=== PATIENT | male | born 1935 | race Caucasian/White ===

== ENCOUNTER 2020-07-07 18:21 | Inpatient (IN) | payer OTHER ==
[~2020-07-07] VITALS: Ht 177.8 cm; Wt 74.8 kg
[2020-07-07 18:29] VITALS: BP 114/78
[2020-07-07] MEDS ORDERED: DOXYCYCLINE 10100 M2 PO (18:39)
[2020-07-07] MEDS ORDERED: ONDANSETRON HCL4 M2 PO (18:39)
[2020-07-07] MEDS ORDERED: HYDROCORTISONE120 M4 TOP (18:40)
[2020-07-07] MEDS ORDERED: METHYLPREDNISOLO4 M1 PO (18:42)
[2020-07-07] MEDS ORDERED: MELOXICAM15 MG PO (18:43)
[2020-07-07] MEDS ORDERED: NORVASC5 MG PO (18:43)
[2020-07-07] MEDS ORDERED: LOSARTAN POTASS50 MG PO (18:44)
[2020-07-07] MEDS ORDERED: SOTALOL AF120 MG PO (18:45)
[2020-07-07 19:39] LABS: ABSOLUTE NEUTROPHILS 4.2 thou/uL (1.4-8.2); BASOPHILS 0.2 % (0.0-2.0); EOSINOPHILS 0.1 % (0.0-3.0); HEMATOCRIT 41.2 % (42.0-52.0); HEMOGLOBIN 13.9 gm/dL (14.0-18.0); LYMPHOCYTES 37.2 % (24.0-44.0); MCH 30.6 pg (26.0-34.0); MCHC 33.8 g/dL (28.0-37.0); MCV 90.4 fL (80.0-100.0); MONOCYTES 6.8 % (1.0-8.0); PLATELET COUNT 210 thou/uL (150-400); POLYS 55.7 % (36.0-66.0); RBC 4.56 mil/uL (4.50-6.00); RDW 14.7 % (10.5-14.5); WBC 7.5 thou/uL (4.0-11.0)
[2020-07-07 19:44] LABS: BE(vivo) -2.3 mmol/L (-2 to +3); HCO3 20.5 mmol/L (22.0-26.0); PCO2 30.3 mmHg (35.0-45.0); PO2 80.8 mmHg (80.0-100.0); pH 7.449 (7.360-7.450); sO2 96.5 % (92.0-98.0)
[2020-07-07 19:47] LABS: ANION GAP 10 mmol/L (7-16); BUN 18 mg/dL (7-18); CALCIUM 8.4 mg/dL (8.5-10.1); CHLORIDE 98 mmol/L (98-107); CO2 24 mmol/L (21-32); GLUCOSE 107 mg/dL (74-106); POTASSIUM 4.1 mmol/L (3.5-5.1); SODIUM 132 mmol/L (136-145)
[2020-07-07 19:58] LABS: ALBUMIN 2.8 g/dL (3.4-5.0); SGOT 33 U/L (15-37); SGPT 17 U/L (30-65); TOTAL BILIRUBIN 0.6 mg/dL (0.2-1.0); TOTAL PROTEIN 6.7 g/dL (6.4-8.2); TROPONIN-I <0.06 ng/mL (<0.06)
[2020-07-07 22:26] LABS: URINE BILIRUBIN NEGATIVE (Negative); URINE BLOOD NEGATIVE (Negative); URINE CLARITY CLEAR; URINE COLOR YELLOW; URINE GLUCOSE-RANDOM* NEGATIVE (Negative); URINE KETONES NEGATIVE (Negative); URINE LEUKOCYTES-REFLEX NEGATIVE (Negative); URINE NITRITE-REFLEX NEGATIVE (Negative); URINE PROTEIN (DIPSTICK) NEGATIVE (Negative); URINE SPECIFIC GRAVITY <= 1.005 (1.005-1.035); URINE UROBILINOGEN 0.2 E.U./dl (0.2-1.0)
[2020-07-07 23:05] VITALS: BP 103/53
--- NOTE | 2020-07-07 23:07 | NUR ---
Attempted to call report to medical nurse. Nurse unable to take report. Reports will call back.
[2020-07-08] VITALS: BP 103/56
--- NOTE | 2020-07-08 01:39 | NUR ---
PT ADMITTED FROM ER. VSS AFEBRILE SAT 88 % ON RA. PLACED ON O2 2 LNC SAT INCREASED TO 97%. LUNGS DIMINISHED COARSE LLLOBE. ABX INFUSING R WRIST. INSTRUCTED ON FALL PRECAUTIONS. ORIENTED PT TO ROOM, URINAL AT BS. CALL LIGHT IN REACH . BED DOWN LOW LOCKED POSITION. BED ALARM ON. PICTURES OF LEFT BUTTOCK WOUND TAKEN. SB-SR ON MONITOR. NO C/O PAIN PRESENTLY. NO S/S DISTRESS PRESENTLY ON 2L. WILL CONTINUE TO MONITOR PT FOR CHANGES.
--- NOTE | 2020-07-08 04:00 | NUR ---
PT RESTING QUIETLY . NO S/S DISTRESS.
[2020-07-08 04:43] VITALS: BP 137/85
[2020-07-08 08:00] VITALS: BP 153/83
[2020-07-08 08:33] LABS: HEMATOCRIT 39.5 % (42.0-52.0); HEMOGLOBIN 13.3 gm/dL (14.0-18.0); MCH 30.3 pg (26.0-34.0); MCHC 33.7 g/dL (28.0-37.0); MCV 89.9 fL (80.0-100.0); RBC 4.39 mil/uL (4.50-6.00); RDW 14.5 % (10.5-14.5); WBC 4.4 thou/uL (4.0-11.0)
[2020-07-08 08:44] LABS: CALCIUM 7.8 mg/dL (8.5-10.1); MAGNESIUM 1.9 mg/dL (1.8-2.4); POTASSIUM 4.1 mmol/L (3.5-5.1)
[2020-07-08 11:32] VITALS: BP 141/88
[2020-07-08 16:00] VITALS: BP 128/81
--- NOTE | 2020-07-08 19:47 | NUR ---
ASSUMED CARE OF PT AT 0700. PT IS A&OX4 AND VITAL SIGNS ARE STABLE. PT COVID TEST POSITIVE AND DR. BRASWELL NOTIFIED. PT USING URINAL AT BEDSIDE, CALLS FOR STAFF TO AMBULATE. PT ON 2L OF O2 AND SATS >93%. FALL PRECAUTIONS IN PLACE AND NURSING WILL CONTINUE TO MONITOR.
[2020-07-08 20:00] VITALS: BP 140/80
[2020-07-09] VITALS (7 sets, daily range): BP systolic 120–154; BP diastolic 72–87
--- NOTE | 2020-07-09 03:38 | NUR ---
PT ALERT AND ORIENTED X4. BP MOD HIGH, PULSE 40S TO 60S. AFEBRILE. SATS 91-92% ON 2LNC. GRADUALLY INCREASED TO 4LNC . RT NOTIFIED. CONTINUOUS PULSE OX ON. SATS INCREASED TO 95-96% ON 4LNC. RT WILL BRING NEBULIZED TX AROUND 0500 WHEN PT AGREED TO BE AWAKENED. HRR SR WITH 1ST DEGREE AV BLOCK ON THE MONITOR. WILL CONTINUE TO MONITOR PT FOR CHANGES.
[2020-07-09 05:38] LABS: BASOPHILS 0.1 % (0.0-2.0); HEMATOCRIT 39.5 % (42.0-52.0); HEMOGLOBIN 13.4 gm/dL (14.0-18.0); LYMPHOCYTES 24.9 % (24.0-44.0); MCH 30.2 pg (26.0-34.0); MCHC 33.8 g/dL (28.0-37.0); MCV 89.4 fL (80.0-100.0); MONOCYTES 5.4 % (1.0-8.0); PLATELET COUNT 235 thou/uL (150-400); POLYS 69.6 % (36.0-66.0); RBC 4.42 mil/uL (4.50-6.00); RDW 14.7 % (10.5-14.5); WBC 11.5 thou/uL (4.0-11.0)
[2020-07-09 05:50] LABS: FIBRINOGEN 380.4 mg/dL (210-360); PROTIME 10.4 Seconds (9.3-11.4)
[2020-07-09 06:18] LABS: ALBUMIN 2.5 g/dL (3.4-5.0); CALCIUM 8.1 mg/dL (8.5-10.1); CREATININE 0.9 mg/dL (0.7-1.3); POTASSIUM 3.9 mmol/L (3.5-5.1); TOTAL BILIRUBIN 0.4 mg/dL (0.2-1.0); TOTAL PROTEIN 6.2 g/dL (6.4-8.2)
--- NOTE | 2020-07-09 07:41 | NUR ---
PT STATED HAD TROUBLE SLEEPING. WILL ASK DR FOR SLEEPING PILL TONIGHT. SAT 99% ON 4LNC.O2 DECREASED TO 3LNC. PCXRAY PENDING. NOTIFIED DAY SHIFT NS TO F/U WITH MEDICAL RECORDS TO OBTAIN CONSENT FOR RELEASE OF INFO. AND GET COPIES OF LABS AND XRAYS TO PT.
--- NOTE | 2020-07-09 08:31 | EKG ---
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 : 1935 Requested By: Carolyn Gong Order Number: [id number] MD: Anand Hutchinson Measurements Intervals [place] Rate: 72 P: 51 VA: 219 QRS: 14 QRSD: 110 T: 47 QT: 421 QTc: 461 Interpretive Statements Sinus rhythm Multiple ventricular premature complexes Borderline prolonged VA interval No previous ECG available for comparison Electronically Signed On 07-09-2020 8:31:11 CDT by Anand Hutchinson [email or web address] <ELECTRONICALLY SIGNED> By: Anand Hutchinson MD, FAC [id number] Anand Hutchinson MD, [facility] /EPI
--- NOTE | 2020-07-09 09:37 | NUR ---
RD consult received for poor intake. Admit with COVID + pneumonia, acute hypoxic respiratory failure. Hx cardiac and htn. Has had loss smell ~5 days. Pt had reported a wt of 172 lb at admit and current wts 181-182 lb. Ate 50-100% yesterday. Will add oral supplement Ensure Enlive 1x daily and follow trends. Low nutrition risk at this time.
--- NOTE | 2020-07-09 10:09 | NUR ---
WOUND CONSULT; THERE IS A WOUND TO THE LEFT BUTTOCK. THE WOUND IS 0.5 X 0.5 X 0.1 THERE IS NO S/S OF INFECTIONS. RECOMMENDATIONS; RENETTA BID LOW AIR LOSS BED PUMP DISCUSSED WITH CLARENCE
--- NOTE | 2020-07-09 16:22 | NUR ---
INITIAL ASSESSMENT: Received consult. URIAH reviewed chart and spoke with nursing and attending physician. Pt was admitted from home due to pneumonia/acute respiratory failure. Pt is in Enhanced Isolation due to COVID-19. Pt is afebrile and on 4L of O2. Pt is on IV abx/IV steroids and completing course of Remdesivir. URIAH placed call to pt's room. No answer. SW left voice message for pt's , Raeann ([phone]). Per chart, pt lives at home with his . Awaiting call back from pt's to discuss pt's prior level of functioning and discharge plans. Pt will need therapy evals when able to participate. SW is following to assist as needed with discharge planning.
--- NOTE | 2020-07-09 19:33 | NUR ---
ASSUMED CARE APPROX 0700. PT ALERT AND ORIENTED X4. ASSESSMENTS CHARTED AND VSS. PT AFEBRILE THIS SHIFT. SB ON TELE MONITOR. DENIES ACUTE PAIN. PT DESATS WITH AMBULATION. ON 3LNC W/ NO SIGNS OF DISTRESS NOTED. PT AMBULATED THIS SHIFT. GAIT STEADY W/ WALKER. PT'S DTR, LAI, UPDATED ON STATUS. MEDICAL RECORDS REQUEST SIGNED AND FAXED. WILL CONTINUE TO MONITOR.
[2020-07-10 04:45] VITALS: BP 137/82
--- NOTE | 2020-07-10 07:30 | NUR ---
PT IS ALERT AND ORIENTED X4, PLEASANT AND COOPERATIVE. ENC TO TC AND DB W/A. SATS DECREASED TO 88 BREIFLY LAST NIGHT ON 3LNC. INCREASED TO 4LNC. RT NOTIFIED AND GAVE TX. Z RANDA APPLIED TO LEFT BUTTOCK. ENC PT TO LIE ON SIDES AND ALTERNATE. MELATONIN GIVEN FOR SLEEP. PT STATED IT HELPED HIM GET TO SLEEP. AFEBRILE LAST NIGHT. BED DOWN CALL LIGHT IN REACH BED ALARM ON.
[2020-07-10 08:40] VITALS: BP 142/89
--- NOTE | 2020-07-10 11:19 | NUR ---
ASSUMED CARE APPROX 0700. PT ALERT AND ORIENTED X4. ASSESSMENTS CHARTED AND VSS. PT WAS ON 3LNC AND HAD DYSPNEIC EPISODE THIS AM. SATS WERE IN THE 80S. O2 INCREASED TO 7LNC. PT GIVEN BREATHING TX. PT NOW ON 6L AND 02 SAT BTWN 93-95%. PT REPORTS THAT HE IS BREATHING BETTER AFTER TX. PT'S DTR, LAI, GIVEN UPDATE ON STATUS. WILL CONTINUE TO MONITOR.
[2020-07-10 11:30] VITALS: BP 143/84
--- NOTE | 2020-07-10 15:00 | NUR ---
URIAH reviewed chart and spoke with nursing and attending physician. Pt is in Enhanced Isolation due to COVID-19. Pt is afebrile and on 3L of O2. Pt is on IV abx/IV steroids. Completing course of Remdesivir (last dose 07/12). Therapy to be ordered when pt is able to participate. URIAH placed call into pt's room. No answer. URIAH spoke with pt's dtr, Ksenia, via phone. Introduced role of URIAH. Pt's dtr is an ICU nurse at [employer]. Per Ksenia, pt lives at home with his . Prior to admission, pt was not using any DME. Pt has had back surgeries in the past and has used HH following surgery. Unsure name of HH agency. Pt's PCP is Dr. James Castro in [place]. Pt's dtr states that their goal is for pt to return home with HH/Home O2 if needed. URIAH is following to assist as needed with discharge planning.
[2020-07-10 16:12] VITALS: BP 122/75
[2020-07-10 19:59] VITALS: BP 137/79
[2020-07-11 05:28] VITALS: BP 150/84
--- NOTE | 2020-07-11 05:41 | NUR ---
ASSUMED CARE AT 1900. PT DENIES PAIN OR NAUSEA. REPORTS FEELING SLIGHTLY SOB, WORSE WITH ACTIVITY; SATS AROUND 92-95% ON 4L. HR 60'S, THEN DROPPED TO 40-50'S ONCE ASLEEP. MOVED WELL FROM CHAIR TO BED WITHOUT ASSISTANCE. SPOKE WITH PT'S DAUGHTER, INFORMED THAT DR. BRASWELL HAS ORDERED TYPE/SCREEN AND CONSENT FORM FOR CONVALESCENT PLASMA; DTR REPORTED SHE WANTED TO TALK WITH DR. BRASWELL BEFORE PLASMA WAS GIVEN. SPOKE WITH PT ABOUT THIS AND HE AGREED THAT SHE SHOULD TALK TO THE DOCTOR FIRST. NO OTHER CONCERNS, WILL CONTINUE TO MONITOR.
[2020-07-11 06:32] LABS: INR 1.1; PROTIME 11.1 Seconds (9.3-11.4)
[2020-07-11 06:49] LABS: ABSOLUTE NEUTROPHILS 7.4 thou/uL (1.4-8.2); BASOPHILS 0.1 % (0.0-2.0); HEMATOCRIT 40.2 % (42.0-52.0); HEMOGLOBIN 13.4 gm/dL (14.0-18.0); LYMPHOCYTES 24.3 % (24.0-44.0); MCH 30.2 pg (26.0-34.0); MCHC 33.4 g/dL (28.0-37.0); MCV 90.2 fL (80.0-100.0); MONOCYTES 4.5 % (1.0-8.0); PLATELET COUNT 268 thou/uL (150-400); POLYS 71.1 % (36.0-66.0); RBC 4.46 mil/uL (4.50-6.00); RDW 14.5 % (10.5-14.5); WBC 10.5 thou/uL (4.0-11.0)
[2020-07-11 07:06] LABS: ALBUMIN 2.4 g/dL (3.4-5.0); CREATININE 0.8 mg/dL (0.7-1.3); POTASSIUM 3.6 mmol/L (3.5-5.1); TOTAL BILIRUBIN 0.6 mg/dL (0.2-1.0); TOTAL PROTEIN 5.9 g/dL (6.4-8.2)
[2020-07-11 09:12] VITALS: BP 118/63
--- NOTE | 2020-07-11 10:30 | NUR ---
WOUND CARE F/U; I DISCUSSED THE PATIENT WOUND WITH THE RN TODAY. COVID RESTRICTIONS TO LIMIT EXPOSURE. THE WOUND CONDITION IS STABLE AT THIS TIME. CONTINUE CURRENT TX DISCUSSED WITH RN
--- NOTE | 2020-07-11 12:01 | NUR ---
SW received call from pt's dtr, Ksenia, requesting a family meeting with physician to discuss pt's current condition and plan of care. Pt's dtr states she has left messages for the hospitalist and ID physician and have not heard back. Pt's son, who is a physician, would like to discuss treatment plan. SW discussed that family meetings cannot be held in person at this time, but a conference call could be arranged. Pt's dtr is agreeable. Pt has seven children and they would like to all hear the information. URIAH discussed with current attending physician. URIAH contacted the Director of Case Mgmt to assist with scheduling a conference call. SW to provide call in # and conference ID # to Ksenia when available. She can pass on the info to her family members. Pt remains in Enhanced Isolation due to COVID-19. Pt is afebrile and on 4L of O2. Pt is on IV abx and completing course of Remdesivir (last dose 07/12). URIAH is following to assist as needed with discharge planning.
[2020-07-11 16:00] VITALS: BP 129/71
--- NOTE | 2020-07-11 19:24 | NUR ---
TODAY PT'S MEDICAL RELEASE FORM WAS COMPLETED PER REQUEST, SIGNED, AND FAXED TO MEDICAL RECORDS. WILL HAVE TO FOLLOW UP WITH IT LATER. ALSO CONVALESCENT PLASMA WAS ATTEMPTED TO BE ADMINISTERED BUT DUE TO SPECIAL IDENTIFICATION CODE NOT BEING PROVIDED AT THIS TIME, RN COULD NOT START THE PROCESS TODAY. WAS REACHED OUT TO AND AWAITING RESPONSE AT THIS TIME. WILL HAVE TO FOLLOW UP. RT INCREASED THE PT'S OXYGEN TO 5L FROM 4L TODAY FOR COMFORT, PT WAS SENT TO CT OF THE CHEST TO RULE OUT PE AT 1845. RESULT TO BE POSTED. NO OTHER CHANGES AT THIS TIME, PT STATES BEING COMFORTABLE AND FEELING BETTER THAN YESTERDAY
[2020-07-11 20:02] VITALS: BP 120/63
[2020-07-12 04:52] VITALS: BP 116/74
[2020-07-12 06:15] LABS: HEMATOCRIT 38.9 % (42.0-52.0); HEMOGLOBIN 13.3 gm/dL (14.0-18.0); MCH 30.9 pg (26.0-34.0); MCHC 34.1 g/dL (28.0-37.0); MCV 90.7 fL (80.0-100.0); RBC 4.29 mil/uL (4.50-6.00); RDW 14.6 % (10.5-14.5); WBC 10.6 thou/uL (4.0-11.0)
[2020-07-12 06:25] LABS: CREATININE 0.8 mg/dL (0.7-1.3); POTASSIUM 3.7 mmol/L (3.5-5.1)
--- NOTE | 2020-07-12 07:48 | NUR ---
ASSUMED CARE AT 1900, ASSESSMENT COMPLETED. PT DENIES PAIN OR NAUSEA. REPORTS STILL FEELING SLIGHTLY SOB, O2 SATS 90-92% ON 5L. ZGUARD APPLIED TO BUTTOCK WOUND. NO FURTHER CONCERNS, SHIFT REPORT GIVEN AT 0700.
[2020-07-12 08:21] VITALS: BP 145/68
[2020-07-12 10:31] VITALS: BP 129/73
[2020-07-12 10:56] VITALS: BP 123/70; BP 137/72
[2020-07-12 12:19] LABS: BE(vivo) 0.7 mmol/L (-2 to +3); HCO3 23.3 mmol/L (22.0-26.0); PCO2 31.5 mmHg (35.0-45.0); PO2 60.3 mmHg (80.0-100.0); pH 7.486 (7.360-7.450); sO2 93.1 % (92.0-98.0)
--- NOTE | 2020-07-12 13:11 | NUR ---
URIAH reviewed chart and spoke with nursing and attending physician. Pt is in Enhanced Isolation due to COVID-19. Pt is afebrile and on 10L of O2. O2 need increased this morning. Pt is on IV abx/IV steroids. Pt is completing course of Remdesivir. Pt to have plasma today. URIAH spoke with pt's dtrKsenia, this morning to follow up on family conference call last evening with attending physician. All questions answered and family are all up to date on the plan of care. Goal is for pt to discharge home with HH and Home O2 if needed. Pt agreeable with plan. Pt will need therapy evals when able to participate. URIAH is following to assist as needed with discharge planning
[2020-07-12 15:54] VITALS: BP 138/78
--- NOTE | 2020-07-12 19:00 | NUR ---
PT BEGAN SHIFT ON 5L AND WAS INCREASED TO 10l @ 0945 WITH SATS OF 92% ON 10L. WILL NOTIFY DR SAMUEL OF O2 NEEDS AND PLACE PULM CONSULT...
[2020-07-12 19:51] VITALS: BP 124/74
[2020-07-13] VITALS (7 sets, daily range): BP systolic 125–148; BP diastolic 67–80
--- NOTE | 2020-07-13 03:39 | NUR ---
PT IS KEEPING HIS O2 SATS IN THE LOWER 90'S ON 14 LITERS N/C. HE IS COMFORTABLE WITH HIS BREATHING AND IS MOVING SECRETIONS. DENIES PAIN. HE IS THANKFUL OF THE CARE AND HAS BEEN ABLE TO RELAX AND REST TONIGHT. ALL QUESTIONS ANSWERED PRESENTED BY HIS DTR AND PATIENT. ENCOURAGED HIM TO CALL FOR ASSIST OUT OF BED.
[2020-07-13 06:06] LABS: HEMATOCRIT 38.4 % (42.0-52.0); HEMOGLOBIN 13.1 gm/dL (14.0-18.0); MCH 30.5 pg (26.0-34.0); MCV 89.6 fL (80.0-100.0); RBC 4.29 mil/uL (4.50-6.00); RDW 14.3 % (10.5-14.5); WBC 10.8 thou/uL (4.0-11.0)
[2020-07-13 06:28] LABS: CALCIUM 8.2 mg/dL (8.5-10.1); POTASSIUM 4.1 mmol/L (3.5-5.1)
[2020-07-13] MEDS ORDERED: HYDROCHLOROTHIA25 M2 PO (09:18)
--- NOTE | 2020-07-13 11:04 | NUR ---
Daughter of Dolores Mccormack requested family meeting with Dr. Hermosillo for today. Coordinated with Dr. Hermosillo and called Ksenia back with Call in [facility] Meeting [phone] ID [phone] (#). Informed Ksenia I would notify SW of today's family call with Dr. Hermosillo at 5:00 PM.
--- NOTE | 2020-07-13 11:30 | NUR ---
SW reviewed chart and spoke with nursing and attending physician. Pt remains in Enhanced Isolation due to COVID-19. Pt is afebrile and requiring 14L of O2. Pt is on IV abx. Pt did receive plasma yesterday. Family meeting requested with attending physician. Scheduled for 1700 via phone conference call. Pt's dtr, Ksenia, to provide info to pt's family. Call in # [phone] Conference ID # [phone]# SW updated pt's nurse. No weekend discharge planned. URIAH is following to assist as needed with discharge planning.
--- NOTE | 2020-07-13 18:00 | NUR ---
PT HAS REMAINED ON 14L HIFLOW TODAY...LUNGS DIMINISHED WITH FEW CRACKLES...ENCOURAGE IS 1500...
--- NOTE | 2020-07-13 18:20 | NUR ---
Dr. Hermosillo spoke with all 8 family members on 5PM conference call and answered all questions. Dr. Hermosillo did get a contact number and will follow up on Thursday evening and call the MD in the family to give an update. All family felt they had the answers to their questions and will continue the POC.
[2020-07-14 03:33] VITALS: BP 134/66
[2020-07-14 05:32] LABS: CALCIUM 8.2 mg/dL (8.5-10.1); CREATININE 0.9 mg/dL (0.7-1.3); POTASSIUM 4.1 mmol/L (3.5-5.1)
--- NOTE | 2020-07-14 07:24 | NUR ---
BED BATH GIVEN TONIGHT. HE HAS BEEN ON THE OPTIFLOW TONIGHT. HE HAS BEEN POSTIONED IN THE BED COMFORTABLY. HE HAS KEPT HIS OXYGEN LEVEL ABOVE 95% MOST OF THE NIGHT. NO CONPLAINTS, HE IS UPBEAT AND THANKFUL FOR THE CARES.
[2020-07-14 07:35] VITALS: BP 124/64
[2020-07-14 11:30] VITALS: BP 131/66
[2020-07-14 16:27] VITALS: BP 127/66
[2020-07-14 21:04] VITALS: BP 140/79
[2020-07-15 02:58] LABS: HEMOGLOBIN 12.5 gm/dL (14.0-18.0); MCH 29.7 pg (26.0-34.0); MCHC 32.9 g/dL (28.0-37.0); MCV 90.1 fL (80.0-100.0); RBC 4.22 mil/uL (4.50-6.00); RDW 14.5 % (10.5-14.5); WBC 11.6 thou/uL (4.0-11.0)
[2020-07-15 03:15] LABS: CALCIUM 8.3 mg/dL (8.5-10.1); CREATININE 0.9 mg/dL (0.7-1.3); POTASSIUM 3.9 mmol/L (3.5-5.1)
--- NOTE | 2020-07-15 04:18 | NUR ---
PATIENT ALERT AND ORIENTED X4. COOPERATIVE WITH CARE. UP TO CHAIR AND BSC WITH SBA. RT IN ROOM SEVERAL TIMES DURING THE NIGHT WITH PATIENT REGARDING TITRATING, 02 SAT AND HEART RATE. PATIENT SATISFIED WITH ANSWERS. IVPB INFUSED W/O COMPLICATION. CC TELE WITH NSR. RESTING QUIETLY AT TIME OF NOTE. WILL MONITOR.
[2020-07-15 05:21] VITALS: BP 134/76
[2020-07-15 08:00] VITALS: BP 149/79
[2020-07-15 12:31] VITALS: BP 134/68
[2020-07-15 17:25] VITALS: BP 104/44
[2020-07-15 19:10] VITALS: BP 136/80
[2020-07-16] VITALS (7 sets, daily range): BP systolic 148–164; BP diastolic 78–93
--- NOTE | 2020-07-16 01:22 | NUR ---
PT ALERT AND ORIENTED X4. PULSE 40-50s PRESENTLY. BIPAP ON 11/04 RT 15 FIO2 70%. BREATH SOUNDS ARE DIMINISHED. ENCOURAGED USE OF IS MACHINE WHILE AWAKE. SAT RANGING FROM 91-95% ON OPTIFLO. ON BIPAP 98%. DENIED PAIN. MILTON APPLIEDTO REDNESS ON BUTTOCKS AND LEFT BUTTOCK WOUND. ASSISTED PT TO LAY ON SIDE WITH HOB UP. BED DOWN. CALL LIGHT IN REACH. BED ALARM IS ON.
[2020-07-16 05:58] LABS: HEMOGLOBIN 12.8 gm/dL (14.0-18.0); MCH 29.8 pg (26.0-34.0); MCHC 32.8 g/dL (28.0-37.0); MCV 90.6 fL (80.0-100.0); RBC 4.3 mil/uL (4.50-6.00); RDW 14.9 % (10.5-14.5); WBC 11.6 thou/uL (4.0-11.0)
[2020-07-16 06:18] LABS: CALCIUM 8.2 mg/dL (8.5-10.1); CREATININE 0.8 mg/dL (0.7-1.3); POTASSIUM 3.7 mmol/L (3.5-5.1)
--- NOTE | 2020-07-16 10:08 | NUR ---
Followup: COVID +, high O2 demands and requires BIPAP however spoke with RN and pt has been eating fairly well, 50-80% of meals and will take oral supplement. Wts are increasing, requires IV lasix. Has left buttock wound and wound care has assessed. No new nutrition interventions. Remains low nutrition risk
--- NOTE | 2020-07-16 10:41 | NUR ---
WOUND CARE F/U; DUE TO COVID ISOLATION/RESTRICTIONS LIMITED ASSESSMENT WOUND, VIEWED PHOTO AND DISCUSSED WOUND CARE W/ CASINO SURVEILLANCE OFFICER [place]. ASKED TO NOTIFY WOUND RN IF WOUND WORSENING, OTHERWISE CONT CURRENT TX, PRESSURE RELIEF, OFF LOADING RECOMMENDATIONS; CONT CURRENT TX CASINO SURVEILLANCE OFFICER AWARE
--- NOTE | 2020-07-17 03:17 | NUR ---
PT IS A&OX4. VSS SAT 92-95% DESATS WHEN GETTING UP TO BSC. TAKES APPROX 10 MIN TO RECOOP. ENC USE OF IS W/A. ENC PT TO PRONE IF CAN TOLERATE ON BIPAP. CURRENTLY ON BIPAP / RT 15 FIO2 50%. PT SLEEPING QUIETLY PRESENTLY. ENC PT TO STAY OFF OF WOUMD.
[2020-07-17 05:17] LABS: HEMATOCRIT 38.6 % (42.0-52.0); MCH 30.1 pg (26.0-34.0); MCHC 33.6 g/dL (28.0-37.0); MCV 89.6 fL (80.0-100.0); RBC 4.31 mil/uL (4.50-6.00); RDW 14.4 % (10.5-14.5); WBC 11.1 thou/uL (4.0-11.0)
[2020-07-17 05:32] LABS: CALCIUM 8.4 mg/dL (8.5-10.1); CREATININE 0.9 mg/dL (0.7-1.3)
[2020-07-17 05:34] VITALS: BP 179/93
[2020-07-17 07:36] VITALS: BP 182/85
[2020-07-17 11:14] VITALS: BP 120/78
--- NOTE | 2020-07-17 14:27 | NUR ---
SW reviewed chart and spoke with nursing and attending physician. Pt is in Enhanced Isolation due to COVID-19. Pt is afebrile and on bipap/optiflow. SW spoke with pt's dtrKsenia, via phone. Pt has not yet been evaluated by therapy. Pt's dtr states that pt is very motivated to start getting up and working with therapy. Pt's goal is to return home with HH and Home O2 if needed. SW discussed with attending physician. Therapy orders to be put in. SW notified Director of Therapy of new orders. SW is following to assist as needed with discharge planning.
--- NOTE | 2020-07-17 18:00 | NUR ---
PT ON OPTIFLOW 85 FIO2 AND 50 L...ENCOURAGE IS AND FLUTTER VALVE..
[2020-07-17 19:28] VITALS: BP 149/88
--- NOTE | 2020-07-17 21:08 | NUR ---
PT RESTING IN BED PRONE POSITION. PT HAS OPTIFLOW INTACT. PT REQUESTED BSC BE PLACED CLOSE TO BED SIDE. PT REQUESTED TO BE CHECKED ON FREQUENTLY THROUGH OUT THE NIGHT BUT NOT AWAKENED. PT EDUCATED REGARDING HOURLY ROUNDING AND HOW HE HAS A TELEMETRY BOX, AND TWO PULSE OXIMETRY ATTACHED. PT VISITED WITH ID . PT DECLINED WEARING BIPAP AT HS STATING, DISCOMFORT AND NOT BEING ABLE TO SLEEP. PT COMPLIANT WITH MEDICATIONS. LUNGS DIMINISHED.
--- NOTE | 2020-07-17 22:21 | NUR ---
PTS DAUGHTER CALLED. WANTING RESPIRATORY TO CONTACT HER REGARDING THEIR OPINION OF HE WOULD BENEFIT FROM 3 DAYS OF BIPAP VERSUS OPTIFLO AND LOW O2 SATURATIONS, WITH HIS FREQUENT MOVEMENTS AND DIFFICULTY RECOVERING. RESPIRATORY NOTIFIED. DAUGHTER ALSO WANTED TO ASK ID REGARDING VITAMIN C, ZINC, IMMUNOGLOBULIN MEDICATIONS AND IF BENEFICIAL. SHE ALSO WANTED TO TALK WITH DR ABOUT RECHECKING LABS REGARDING LIVER, CRP AND IMMUNE SYSTEM MARKERS.
--- NOTE | 2020-07-17 22:24 | NUR ---
PT ASKED TO CALL FOR ASSISTANCE TO BSC, BECAUSE PT IS DISCONNECTING OPTIFLO FREQUENTLY WITH HIS MOVEMENTS AND REPOSITIONING AND NOT ABLE TO NOTICE THAT HE IS NO LONGER CONNECTED. HE STATED HE THOUGHT HIS O2 SAT WOULD RECOVER, NOT REALIZING HE WAS NOT CONNECTED. DAUGHTER UPDATED REGARDING THESE EVENTS.
--- NOTE | 2020-07-18 03:19 | NUR ---
PT HAS HAD 3 MORE EPISODES WHEN OPTI YOLANDA BECOMES DISCONNECTED, O2 SAT ALARMS AND PT IS NOT AWARE THAT HIS OPTIFLO HAS BEEN DISCONNECTED. PT WAS PRONE INITIALLY WHEN SLEEPING BUT DID RETURN TO LAYING ON HIS BACK. HR DID DECREASE TO 44 BUT THEN RETURNED TO HIGH 50'S.
[2020-07-18 03:33] VITALS: BP 144/30
[2020-07-18 08:46] VITALS: BP 142/78
--- NOTE | 2020-07-18 13:50 | NUR ---
URIAH reviewed chart and spoke with nursing and attending physician. Pt remains in Enhanced Isolation due to COVID-19. Pt is afebrile and on optiflow. Pt is on IV abx and IV steroids. Pt's family are requesting a conference call with attending physician. Director of Case Mgmt to schedule call and provide info to SW and family. SW updated pt's nurse regarding conference call. SW discussed ordering thearpy evals per family request, if pt is able to tolerate therapy. URIAH is following to assist as needed with discharge planning.
[2020-07-18 14:30] VITALS: BP 155/81
--- NOTE | 2020-07-18 15:06 | NUR ---
Spoke with daughter Ksenia and gave call in number of [phone] ID: [phone] (#) for family meeting with URIAH and Dr. Zamora (who confirmed time and date) on 07/19/2020 at 2:00 PM. URIAH notified.
[2020-07-18 19:40] VITALS: BP 136/79
--- NOTE | 2020-07-18 20:04 | NUR ---
PT HAS PRONED X 2 TODAY BETWEEN MEALS...ASSIST WITH POSITIONING...PRODUCTIVE WHITE THICK SPUTUM...REMAINS ON OPTIFLOW...RT TITRATING PER PROTOCAL...
[2020-07-19 03:00] VITALS: BP 147/85
--- NOTE | 2020-07-19 03:30 | NUR ---
RESTING QUIETLY TONIGHT. HE IS COMFROTABLE PER HIS REPORT. HE FEEL LIKE THE MELATONIN IS HELPING HIM REST. CONTINUES ON THE HIGH FLOW OXYGEN. AFEBRILE AND HE IS COMFORTAB;LE WITH HIS BREATHING
[2020-07-19 05:51] LABS: HEMATOCRIT 38.8 % (42.0-52.0); MCH 30.2 pg (26.0-34.0); MCHC 33.5 g/dL (28.0-37.0); MCV 90.3 fL (80.0-100.0); RBC 4.29 mil/uL (4.50-6.00); RDW 14.2 % (10.5-14.5); WBC 11.8 thou/uL (4.0-11.0)
[2020-07-19 05:58] LABS: CALCIUM 8.3 mg/dL (8.5-10.1); CREATININE 0.9 mg/dL (0.7-1.3); MAGNESIUM 2.3 mg/dL (1.8-2.4); POTASSIUM 3.7 mmol/L (3.5-5.1)
[2020-07-19 06:00] LABS: FIBRINOGEN 414.1 mg/dL (210-360); PROTIME 10.5 Seconds (9.3-11.4)
[2020-07-19 07:55] VITALS: BP 150/86
--- NOTE | 2020-07-19 10:07 | NUR ---
WOUND CARE F/U; DR DAWSON PRESENT. THE RELAY WORKER PRESENT AND MYSELF. THE PICURE ON THE CHART LOOKED DRAMATICALLY WORSE. A DEEP RED COLOR UPON ASSESSMENT THE AREA WAS A LIGHT RED AREA THAT BLANCHED APPROPRIATLY AND HAS AN AREA APPROX . 5 X .5 X 0.1 THE PATIENT CAN STAND AND TURN HIMSELF. I WILL ADD A LALP RE; OVERALL CONDITION AND RISK FACTORS. RECOMMENDATIONS; 1-CONTINUE ZGUARD ORDERED. 2-ADD A LOW AIR LOSS PUMP RN AND PCP PRESENT
--- NOTE | 2020-07-19 11:33 | NUR ---
PT CURRENTLY ON 50L, 95% FIO2. PER PT, HE WAS PRONED FOR 4HOURS TOTAL 07/18/20, CURRENTLY IN PRONE POSITION NOW SINCE 1100. FINE CRACKLES HEARD IN BOTH UPPER LOBE, CURRENTLY RUNNING ABX, NO MAINTAINENCE FLUID. PT TOLERATING INCENTIVE SPIROMETRY 1L, GOAL OF 1.5L FOR THE DAY. SPOKE WITH PT'S DAUGHTER LAI AND PROVIDED UPDATE REGARDING CURRENT STATUS AND PLAN OF CARE. Z GUARD PLACED ON PT'S BUTTOCKS, WOUND CARE CONSULT CALLED IN, PT DESATS TO 80s WHEN EXERTING SO ACTIVITES ARE SPACED OUT. WILL CONTINUE TO MONITOR AND UPDATE NECESSARY
--- NOTE | 2020-07-19 11:39 | NUR ---
URIAH reviewed chart and spoke with nursing and attending physician. Pt remains in Enhanced Isolation due to COVID-19. Pt is afebrile and on optiflow. Pt is on IV abx, IV steroids and IV lasix. Family conference call scheduled by Director of Case Mgmt for this afternoon at 1400 with attending physician, SW and 3W unitizer. ( Conference ID# [phone]#). URIAH is following to assist as needed with discharge planning.
[2020-07-19 12:01] VITALS: BP 136/77
[2020-07-19 16:28] VITALS: BP 151/87
[2020-07-19 20:19] VITALS: BP 139/87
[2020-07-20 04:24] VITALS: BP 152/83
[2020-07-20 05:17] LABS: HEMATOCRIT 37.8 % (42.0-52.0); HEMOGLOBIN 12.6 gm/dL (14.0-18.0); MCHC 33.3 g/dL (28.0-37.0); MCV 90.3 fL (80.0-100.0); RBC 4.19 mil/uL (4.50-6.00); RDW 14.2 % (10.5-14.5); WBC 11.8 thou/uL (4.0-11.0)
[2020-07-20 05:26] LABS: CALCIUM 8.1 mg/dL (8.5-10.1); CREATININE 0.9 mg/dL (0.7-1.3); MAGNESIUM 2.3 mg/dL (1.8-2.4); POTASSIUM 3.5 mmol/L (3.5-5.1)
--- NOTE | 2020-07-20 05:45 | NUR ---
Patient making very slow progress towards outcome goals. Maintaining optimal oxygen saturation on 95% oxygen per optiflow. Gait steady, up x 1 assist. Vital signs and rhythm stable. Call out appropriately for needs. Slept in prone position for about 4 hours. Appetite still poor, refused HS snack. Open area in coccyx dry, zinc ointment applied.
[2020-07-20 07:58] VITALS: BP 135/76
[2020-07-20 11:07] VITALS: BP 118/67
--- NOTE | 2020-07-20 12:26 | NUR ---
SW reviewed chart and spoke with nursing and attending physician. Pt remains in Enhanced Isolation due to COVID-19. Pt is afebrile and requiring optiflow. Pt is on IV abx/IV steroids and IV lasix. No weekend discharge planned. Pt desats with any activity. Therapy to be ordered when pt is able to participate. SW is following to assist as needed with discharge planning.
[2020-07-20 14:48] VITALS: BP 136/77
--- NOTE | 2020-07-20 18:28 | NUR ---
PATIENT IS ALERT ORIENTED X4. QUITE PLEASANT WITH CARES. DENIES PAIN. DOES HAVE DIFFICULTY BREATHING WITH EXERTION. ACTIVITTY SPACED OUT. HE IS VERY ENGAGE IN CARES. RESPIRTIONS LABORED AND CONT ON HI-YOLANDA OXYGEN AT 95%. WILL CONT WITH PLAN OF CARE.
[2020-07-20 20:29] VITALS: BP 131/65
[2020-07-21] VITALS (8 sets, daily range): BP systolic 125–159; BP diastolic 65–80
[2020-07-21 05:34] LABS: HEMOGLOBIN 11.8 gm/dL (14.0-18.0); MCH 30.6 pg (26.0-34.0); MCHC 33.9 g/dL (28.0-37.0); MCV 90.5 fL (80.0-100.0); RBC 3.87 mil/uL (4.50-6.00); RDW 14.3 % (10.5-14.5); WBC 13.5 thou/uL (4.0-11.0)
[2020-07-21 05:50] LABS: CALCIUM 8.2 mg/dL (8.5-10.1); CREATININE 0.9 mg/dL (0.7-1.3); MAGNESIUM 2.4 mg/dL (1.8-2.4); POTASSIUM 3.6 mmol/L (3.5-5.1)
--- NOTE | 2020-07-21 16:19 | NUR ---
PATIENT WILL BE TRANSFERED AT THIS TIME ICU FOR CLOSER MONITORING. HE IS ALERT ORIENTED X4. PLEASANT WITH CARE. NO COMPLAIN OF PAIN NOTED. DOES NOT SEEM TO BE IN PAIN. WILL CONT WITH PLAN OF CARE.
--- NOTE | 2020-07-21 18:40 | NUR ---
PT TRANSFERRED TO ICU FROM AT 1830. AMBULATED FROM CART TO BED. O2 OPTIFLOW HIGH FLOW O2 50L, 95%. O2 SATS STABLE. VSS. WILL CONTINUE TO MONITOR PATIENT.
[2020-07-22] VITALS (35 sets, daily range): BP systolic 115–178; BP diastolic 56–127
--- NOTE | 2020-07-22 02:39 | NUR ---
ASSUMED CARE OF PATIENT AT 1900. PATIENT VERY PLEASANT AND AGREEABLE TO POC FOR THE NIGHT. DENIES PAIN OR SOA. DOES DESAT VERY EASILY, TAKES TIME TO RECOVER. REMAINS ON OPTIFLOW. PRONING FROM 0100 ON. NO S/S OF DISTRESS, WILL CONTINUE TO MONITOR.
[2020-07-22 04:46] LABS: CALCIUM 8.1 mg/dL (8.5-10.1); CREATININE 0.8 mg/dL (0.7-1.3); MAGNESIUM 2.2 mg/dL (1.8-2.4); POTASSIUM 3.9 mmol/L (3.5-5.1)
[2020-07-22 04:51] LABS: HEMOGLOBIN 13.2 gm/dL (14.0-18.0); MCH 29.7 pg (26.0-34.0); MCHC 32.9 g/dL (28.0-37.0); MCV 90.5 fL (80.0-100.0); RBC 4.42 mil/uL (4.50-6.00); RDW 14.5 % (10.5-14.5); WBC 16.4 thou/uL (4.0-11.0)
--- NOTE | 2020-07-22 11:46 | NUR ---
ASSUMED CARE AT 0700, ASSESSMENT AND VITAL SIGNS COMPLETED PER ICU PROTOCOL. DR. SAMIR MAHARAJ, PLAN OF CARE DISCUSSED. DR. MEJIA PAGED AND NOTIFIED OF LOWER EXTREMITY SWELLING AND DECREASED URINE OUTPUT WITH DARK YELLOW URINE. NEW ORDERS RECEIVED AND EXECUTED. RN WILL CONTINUE TO MONITOR.
[2020-07-23] VITALS (9 sets, daily range): BP systolic 126–152; BP diastolic 62–82
--- NOTE | 2020-07-23 02:56 | NUR ---
ASSUMED CARE OF PATIENT AT 1900. PATIENT UNABLE TO VOID MORE THAN 30-50 MLS AT A TIME. BLADDER SCAN SHOWED OVER 500 MLS IN BLADDER. HORTICULTURAL FARM MANAGER ENGINE EMISSION TECHNICIAN NOTIFIED. ORDERS TO STRAIGHT CATH OBTAINEDAS WELL FLOMAX. THIS RN ATTEMPTED TO STRAIGHT CATH, NO URINE PRODUCED. NEW COUDE CATHETER OBTAINED. ONCE AGAIN ATTEMPTED TO STRAIGHT CATH WITHOUT SUCCESS. TRAUMA APPARANT WITH BLOOD. HORTICULTURAL FARM MANAGER NOTIFIED. ORDERS RECIEVED FOR COUDE CATHETER TO BE PLACED BY PATTERN REPAIR PERSON. PATTERN REPAIR PERSON TO BEDSIDE, LIDOCAINE ADMINISTERED. MULTIPLE ATTEMPTS MADE TO PLACE CATHETER. NO URINE RESULTING. HORTICULTURAL FARM MANAGER NOTIFIED. FAMILY NOTIFIED THAT THIS FACILITY DOES NOT HAVE A UROLOGIST. MULTIPLE CALLS TO RETAIL EVENT ASSISTANT, HORTICULTURAL FARM MANAGER ENGINE EMISSION TECHNICIAN AND DR MEJIA MADE. FAMILY WANTS PATIENT TO STAY HERE AND NOT BE INTUBATED. HORTICULTURAL FARM MANAGER ALSO GAVE ADDITIONAL ORDER FOR ONE MORE FLOMAX DOSE. BLADDER SCAN CONTINUES TO SHOW GREATER THAN 400 MLS, PATIENT UNABLE TO VOID MORE THAN 30 MLS AT A TIME. FAMILY TOLD THIS RN THAT PATIENT HAD A PRIOR SURGERY REQUIRING A UROLOGIST RO PLACE CATHETER, AND HE WAS ON FLOMAX FOR 2 WEEKS. PATIENT CONTINUES TO DESAT WITH ANY ACTIVITY. IT IS TAKING LONGER FOR PATIENT TO RECOVER EACH TIME. PATIENT AGREEABLE TO STAYING IN BED FOR THE NIGHT. FAMILY UPDATED APPROPRIATE. HORTICULTURAL FARM MANAGER GIVEN SONS PHONE NUMBER TO DISCUSS POC. WAITING ON ORDERS AT THIS TIME.
[2020-07-23 06:06] LABS: CALCIUM 7.8 mg/dL (8.5-10.1); CREATININE 0.9 mg/dL (0.7-1.3); POTASSIUM 3.5 mmol/L (3.5-5.1)
--- NOTE | 2020-07-23 08:58 | NUR ---
WAS ALERT AND ORIENTED AND VITALS STABLE. ASSESSMENT DOCUMENTED AND DENIED PAIN, ON OPTIFLO AND TOLERATED WELL. PATIENT TRANSPORTED BY EMS TO [facility] FOR UROLOGY CONSULT. REPORT CALLED TO CHARLES. CELL PHONE AND FPGA ENGINEER WITH PATIENT AND THE REST OF BELONGINGS GIVEN TO DAUGHTER LAI.
--- NOTE | 2020-07-23 09:31 | NUR ---
cm checked with bedside nurse in icu, he already go to [facility].
--- NOTE | 2020-07-24 08:52 | HC ---
[facility] [place] [address] CONSULTATION Name: MARILEE AWAD Room #: 236-P [facility] IN M.R.#: [id number] Admission: 07/07/20 Attend Phys: Thelma Honeycutt Discharge: 07/23/20 Date of : 39 Report #: [id number] THIS REPORT FOR: cc: JUNIOR - Family physician unknown JUNIOR - Family physician unknown Kvng Aaron MD ~ CC: JUNIOR unknown Thelma Honeycutt DATE OF SERVICE: 07/19/2020 WOUND CARE CONSULTATION PERSONAL PHYSICIAN: None. CHIEF COMPLAINT: Left gluteal decubitus ulcer. HISTORY OF PRESENT ILLNESS: This is an 84-year-old white male who has currently been hospitalized for the past several days at [facility] for COVID-19 positive respiratory infection. We have been asked to see the patient for ulceration on his left buttock consistent with a decubitus ulcer. The patient states he does have slight pain associated with this, but only when he is sitting on it. The patient is also complaining of somewhat pruritic rash in the buttock area as well. The patient denies any other associated ulcerations that he is aware of. Nursing staff have no other associated wounds care concerns. The patient states he has never had any wounds he could not heal on his own. PAST MEDICAL HISTORY: Coronary artery disease, history of previous DVT and pulmonary emboli. CURRENT MEDICATIONS: Multiple, I reviewed the patient's medication list. DRUG ALLERGIES: None. SOCIAL HISTORY: The patient denies alcohol or tobacco use. FAMILY HISTORY: Not pertinent to current medical condition. REVIEW OF SYSTEMS: CONSTITUTIONAL: The patient denies fevers or chills at this time. NEUROLOGIC: The patient complains of overall generalized weakness, but no isolated weakness in arms or legs. EYES: No complaints. ENT: The patient complains of loss of taste and smell secondary to COVID-[address] [facility] [address] [place] [address] CONSULTATION Name: AWADMARILEE Room #: 236-P DIS IN ..#: [id number] Admission: 07/07/20 Attend Phys: Thelma Honeycutt Discharge: 07/23/20 Date of : 39 Report #: [id number] CARDIOVASCULAR: The patient denies chest pain, palpitations or peripheral edema. RESPIRATORY: The patient denies shortness of breath, cough or wheezes. GASTROINTESTINAL: The patient denies nausea, vomiting or abdominal pain. GENITOURINARY: The patient denies urgency or frequency. MUSCULOSKELETAL: No complaints. SKIN: There is a decubitus ulcer in the buttock region as well as a deep tissue injury in the buttock region. PHYSICAL EXAMINATION: VITAL SIGNS: Temperature 36.7, pulse 67, respirations 16, BP 118/67, O2 saturation 97%. GENERAL: This is an alert and oriented x 3, pleasant white male, who is in absolutely no distress. HEENT: Normocephalic, atraumatic. Mucous membranes are moist. Pupils are round. Sclerae are white. NECK: Supple, nontender. LUNGS: Slight diminished breath sounds heard throughout. Occasional scattered wheeze. HEART: Regular. ABDOMEN: Soft, nontender. EXTREMITIES: The patient moves all extremities without difficulty. Bilateral heels are intact. Evaluation of gluteal region reveals a stage 2 decubitus ulcer to left buttock, which has intact dermal tissue without signs of infection. There is also ecchymosis noted in the sacral-gluteal region consistent with a deep tissue injury without breakdown with associated fungal type rash noted on the sacral-gluteal region as well with excoriation. NEUROLOGIC: Cranial nerves 2-12 grossly intact. Motor and sensory grossly intact. LABORATORY DATA: White count 11.8, hemoglobin 13.0. Albumin is 2.4. IMPRESSION: 1. Stage 2 decubitus ulcer, left buttock. 2. Deep tissue injury to the sacral-gluteal region without signs of overt infection. 3. Fungal rash in the sacral-gluteal region. 4. Hypertension. 5. Coronary artery disease. 6. Respiratory illness with COVID-19 positive. 7. Generalized debility. 8. Protein-calorie malnutrition - severe with albumin of 2.4. PLAN: We will start antifungal barrier cream to the stage 2 decubitus ulcer as well as the fungal rash. I have put the patient on low air loss mattress and will be turned every 2 hours. We will maximize the patient's oral protein [address] [address] CONSULTATION Name: AWADMARILEE Room #: 236-P [facility] IN M.R.#: [id number] Admission: 07/07/20 Attend Phys: Thelma Honeycutt Discharge: 07/23/20 Date of : 39 Report #: [id number] supplementation for healing. We will utilize physical and occupational therapy as the patient is able. We will continue all other current medications. I appreciate the ability to consult and we will continue to follow the patient. <ELECTRONICALLY SIGNED> By: Kvng Aaron MD 07/24/20 [id number] Kvng Aaron MD /nt
--- NOTE | 2020-07-25 15:50 | NUR ---
mark anthony montiel called requested phone number rt unable to reach florecita at the numbers she has, called andie back at [phone] provided [facility] and date. no phone number given " thank you"/ andie with mark anthony alatorre
== END 2020-07-23 08:45 | disposition short-term general hospital (02) | DRG 177 ==
LOC: ER 18:21 → 3W 20:58 → EROBS 20:58 → 3W 23:43 → ICU 07-21 18:35
PROVIDERS: Hospitalist; Internal Medicine; Internal Medicine Pulmonary Disease; Nurse Practitioner Family; Physician Assistant; Specialist; ADMIT Hospitalist; ATTEND Hospitalist
PROC: XW033E5 Introduction of Remdesivir Anti-infective into Peripheral Vein, Percutaneous Approach, New Technology Group 5 (ICD-10-PCS; principal; 2020-07-08)
PROC: XW033E5 Introduction of Remdesivir Anti-infective into Peripheral Vein, Percutaneous Approach, New Technology Group 5 (ICD-10-PCS; 2020-07-09)
PROC: XW13325 Transfusion of Convalescent Plasma (Nonautologous) into Peripheral Vein, Percutaneous Approach, New Technology Group 5 (ICD-10-PCS; 2020-07-12)
PROC: 5A09357 Assistance with Respiratory Ventilation, Less than 24 Consecutive Hours, Continuous Positive Airway Pressure (ICD-10-PCS; 2020-07-15)
PROC: 5A09357 Assistance with Respiratory Ventilation, Less than 24 Consecutive Hours, Continuous Positive Airway Pressure (ICD-10-PCS; 2020-07-16)
PROC: 5A09357 Assistance with Respiratory Ventilation, Less than 24 Consecutive Hours, Continuous Positive Airway Pressure (ICD-10-PCS; 2020-07-17)
DX: U07.1 COVID-19 (principal); J96.01 Acute respiratory failure with hypoxia; J12.9 Viral pneumonia, unspecified; E43 Unspecified severe protein-calorie malnutrition; E87.0 Hyperosmolality and hypernatremia; R19.7 Diarrhea, unspecified; R50.9 Fever, unspecified; E86.0 Dehydration; L89.156 Pressure-induced deep tissue damage of sacral region; B35.9 Dermatophytosis, unspecified; J43.9 Emphysema, unspecified; I25.10 Atherosclerotic heart disease of native coronary artery without angina pectoris; L89.322 Pressure ulcer of left buttock, stage 2; M54.9 Dorsalgia, unspecified; I48.91 Unspecified atrial fibrillation; I10 Essential (primary) hypertension; R53.81 Other malaise; Z68.23 Body mass index [BMI] 23.0-23.9, adult; Z86.711 Personal history of pulmonary embolism; Z79.01 Long term (current) use of anticoagulants; Z86.718 Personal history of other venous thrombosis and embolism; Z87.891 Personal history of nicotine dependence; Z95.5 Presence of coronary angioplasty implant and graft; Z79.899 Other long term (current) drug therapy; Z98.1 Arthrodesis status; Z82.49 Family history of ischemic heart disease and other diseases of the circulatory system; Z99.81 Dependence on supplemental oxygen
CPT/HCPCS: 10203; 10879; 50455